=== PATIENT | female | born 1950 | race Caucasian/White ===

== ENCOUNTER 2016-07-30 11:06 | Outpatient (CLI) | payer MEDICARE, BC ==
[~2016-07-30 11:06] MED LIST: BAYER CHEWABLE81 MG PO; CITRACAL + D E1 EACH PO; MULTIPLE VITAMI1 TA1 PO; PRINIVIL20 MG PO
[2016-07-30 11:48] VITALS: BP 106/76; Ht 165.1 cm
== END 2016-07-30 12:00 ==
LOC: D.OPS 11:06
DX: M81.0 Age-related osteoporosis without current pathological fracture (principal)

== ENCOUNTER 2017-01-28 12:46 | Outpatient (CLI) | payer MEDICARE, BC ==
[~2017-01-28] VITALS: Ht 165.1 cm; Wt 63.6 kg
[2017-01-28 13:53] VITALS: Ht 165.1 cm; Wt 63.6 kg
--- NOTE | 2017-01-28 14:06 | NUR ---
1405--DISCHARGE INSTRUCTIONS GIVEN, PT VERBALIZES UNDERSTANDING. PT OFF UNIT AMBULATORY. YULIANA TORRES
== END 2017-01-28 14:05 | disposition home or self-care (01) ==
LOC: D.OPS 12:46
DX: M81.0 Age-related osteoporosis without current pathological fracture (principal)

== ENCOUNTER 2017-08-03 09:38 | Outpatient (CLI) | payer MEDICARE, BC ==
[~2017-08-03] VITALS: Ht 165.1 cm
[2017-08-03 10:32] VITALS: BP 131/47; Ht 165.1 cm
== END 2017-08-03 10:35 ==
LOC: D.OPS 09:38
DX: M81.0 Age-related osteoporosis without current pathological fracture (principal)

== ENCOUNTER 2018-02-01 12:14 | Outpatient (CLI) | payer MEDICARE, BC ==
[~2018-02-01] VITALS: Ht 165.1 cm; Wt 65.9 kg
[2018-02-01 12:52] VITALS: BP 108/65; Ht 165.1 cm; Wt 65.9 kg
== END 2018-02-01 13:13 ==
LOC: D.OPS 12:14
DX: M81.0 Age-related osteoporosis without current pathological fracture (principal); Z01.812 Encounter for preprocedural laboratory examination

== ENCOUNTER 2018-08-09 14:41 | Outpatient (CLI) | payer MEDICARE, BC ==
[~2018-08-09] VITALS: Ht 165.1 cm; Wt 63.6 kg
[2018-08-09 14:57] VITALS: BP 125/57; Ht 165.1 cm; Wt 63.6 kg
--- NOTE | 2018-08-09 15:03 | NUR ---
PT LEFT UNIT AMBULATING AT 1503
== END 2018-08-09 15:03 | disposition home or self-care (01) ==
LOC: D.OPS 14:41
PROVIDERS: ATTEND Family Medicine
DX: M81.0 Age-related osteoporosis without current pathological fracture (principal)

== ENCOUNTER 2019-02-14 12:15 | Outpatient (CLI) | payer MEDICARE, BC ==
[~2019-02-14] VITALS: Ht 165.1 cm; Wt 65.9 kg
[2019-02-14 12:30] VITALS: Ht 165.1 cm; Wt 65.9 kg
== END 2019-02-14 12:49 | disposition home or self-care (01) ==
LOC: D.OPS 12:15
PROVIDERS: ATTEND Family Medicine
DX: M81.0 Age-related osteoporosis without current pathological fracture (principal)

== ENCOUNTER → 2020-03-22 12:12 | Outpatient (CLI) | payer MEDICARE, BC ==
[2019-02-14 12:30] VITALS: BMI 24.1
--- NOTE | 2020-03-25 09:31 | EC ---
PATIENT:CINDY MACHADO DATE OF SERVICE: 03/22/20 SEX: F MEDICAL RECORD: [id number] DATE OF : 46 LOCATION:D.[facility] AGE OF PATIENT: 69 ADMISSION DATE: 03/22/20 REFERRING PHYSICIAN: INTERPRETING PHYSICIAN: CLARENCE BANGURA MD ECHOCARDIOGRAM REPORT ECHO CHARGES 4 ECHO COMPLETE Date: 03/22/20 CLINICAL DIAGNOSIS: HEART MURMUR/HTN ECHOCARDIOGRAPHIC MEASUREMENTS (adult normal given) AC root (d.<3.7cm) 3.4 cm LV Septum d (<1.2 cm> 1.3 cm Valve Excursion 1.7 cm LV Septum (systole) 1.5 cm Left Atria (s.<4.0cm> 3.4 cm LVPW d(<1.2cm) 1.4 cm RV (d.<2.3cm) 3.2 cm LVPW (sytole) 1.6 cm LV diastole(<5.6CM) 4.6 cm MV E-F(>70mm/sec) cm LV systole 2.6 cm LVOT Diameter 2.1 cm MV exc.(>10mm) 1.7 cm Est.ejection fraction (50-75%) % DOPPLER: LVIT cm/sec A 70.0 cm/sec E 60.0 cm/sec LA cm/sec RVSP 35 mmHg LVOT 94 cm/sec AOP1/2T m/s Asc. Ao 130 cm/sec RVOT 64 cm/sec RA cm/sec PA 98 cm/sec AV Gradient Peak 6.72 mmHg AV Mean 3.8 mmHg AV Area 2.3 cm MV Gradient Peak 3.31 mmHg MV Mean 1.03 mmHg MV Area cm COMMENTS: Tunnel Mucker: 2 ANKUR CHAMBERS Observer Helper: 3 Dr. Miller TAPE# PACS Pericardial Effusion N DATE OF SERVICE: Adequate 2D, color flow imaging, spectral Doppler, and M-Mode. Borderline LVH. LV internal dimension is normal. Wall motion is normal. EF is greater than or equal to 55%. Aortic valve is tricuspid. No evidence of stenosis by Doppler interrogation. Left atrium is normal. Mitral valve shows no prolapse. Trace MR. Right-sided chambers grossly normal. Trace TR. TRANSINT:[id number] Voice Confirmation ID: [id number] DOCUMENT ID: [id number] ECHOCARDIOGRAM REPORT [id number] FORE,CINDY BANGURA,CLARENCE Edmondson MD at 0931 CC: [id number] DICTATION DATE: 03/22/20 1247 WASHING MACHINE REPAIRER: 03/22/202201 DEP CLI 03/22/20 [facility] [address] [place] [address]
== END | disposition home or self-care (01) ==
LOC: D.HCCECHO 12:12
PROVIDERS: ATTEND Internal Medicine Interventional Cardiology
DX: I10 Essential (primary) hypertension (principal)

== ENCOUNTER 2020-09-03 12:17 | Outpatient (CLI) | payer MEDICARE, BC ==
[~2020-09-03] VITALS: Ht 165.1 cm; Wt 70.5 kg
[2020-09-03 12:46] VITALS: BP 124/56; Ht 165.1 cm; Wt 70.5 kg
== END 2020-09-03 13:33 | disposition home or self-care (01) ==
LOC: D.OPS 12:17
PROVIDERS: ATTEND Family Medicine
DX: M81.0 Age-related osteoporosis without current pathological fracture (principal)